=== PATIENT | male | born 1995 | race Caucasian/White ===

== ENCOUNTER 2017-04-08 23:45 | Emergency (ER) | payer SELFPAY ==
[2017-04-08 23:52] VITALS: RESP 16; TEMP 98.6
--- NOTE | 2017-04-09 00:24 | EDPHY ---
H & P Stated Complaint: forehead lac Source: Patient Exam Limitations: No limitations - Personal History Current Tetanus/Diphtheria Vaccine: Unsure Current Tetanus Diphtheria and Acellular Pertussis (TDAP): Unsure - Medical/Surgical History Hx Asthma: No Hx Chronic Respiratory Disease: No Hx Diabetes: No Hx Cardiac Disease: No Hx Renal Disease: No Hx Cirrhosis: No Hx Alcoholism: No Hx HIV/AIDS: No Hx Splenectomy or Spleen Trauma: No Other PMH: denies - Social History Smoking Status: Never smoked HPI/ROS: CHIEF COMPLAINT: Fall, forehead laceration HISTORY OF PRESENT ILLNESS: Patient reports with complaints of mechanical fall. He says he was carrying a friend on his back and tripped and fell. He struck his head on concrete sidewalk. Denies loss of consciousness. Denies headache. He has an abrasion to the top of the forehead as well as a superficial laceration to the forehead. He has no neck pain. No nausea or vomiting. No visual disturbance. No injury elsewhere on his person. He says that he is embarrassed of this and has no complaints of pain just wants is laceration addressed. No other associated complaints or modifying factors. TIME OF INJURY: Less than 1 hour ago TETANUS STATUS: Less than 5 years ago REVIEW OF SYSTEMS: Ten systems reviewed and are negative unless otherwise noted in the HPI EXAMINATION General Appearance: Alert, no distress Head: normocephalic. Superficial abrasion to the hairline in the anterior scalp measuring 2 cm. Superficial laceration to the forehead centrally, measuring 1.5 cm. No depression or hematomas elsewhere. No Nichole sign. No raccoon eyes. Cardiovascular: Pulses normal throughout. Symmetric radial pulses 2+. Symmetric DP pulses 2+. Brisk cap refill Neurological: GCS 15. Cranial nerves 2-12 grossly intact. A&O, sensory symmetric, strength symmetric in all 4 limbs. No pronator drift. No dysmetria. No tremor. Skin: Warm and dry, no rash. Abrasion laceration as above. No other injuries elsewhere. Extremities: Nontender, no pedal edema DIFFERENTIAL DIAGNOSES: Including but not limited to hematoma, concussion, intracranial hemorrhage, closed head injury, laceration, abrasion, contusion MDM: 12:20 a.m. Mechanical fall with superficial abrasion to the hairline of the scalp and superficial laceration to the forehead. There is small hematoma only of the frontal region. No outward signs of trauma that would suggest intracranial hemorrhage or fracture. He does not meet CT scan of the head criteria based on Davidson CT head rules. There is no cervical spine tenderness. No injury elsewhere. I have anesthetize the forehead wound and will proceed with irrigation. 12:45 a.m. Laceration has been irrigated and closed with Dermabond adhesive without complication. Excellent approximation of wound borders. He neurovascular intact distally. He is awake and alert, conversing appropriately. He is ambulating without assistance. No vomiting. No visual change. No headache. Discharged home stable condition. ED precautions discussed. He will follow up with his primary care physician back in [place] PROCEDURE: Laceration repair Consent: Verbal Location: Forehead Length of repair: 1.5 cm Complexity: Simple Layer involvement: Single Anesthesia: Local. 1% lidocaine with epinephrine, 5 mL Irrigation: Extensive Debridement: None Procedure description: Following good anesthesia, the wound was copiously irrigated. Wound bed was explored and there is no foreign body noted. There is no exposure of or injury to the [place]. Wound borders were approximated well with good hemostasis. Tolerated well without complication. Suture/Staple material: Dermabond skin adhesive Wound care: Routine as discussed SUTURE STAPLE REMOVAL: None. Skin adhesive applied. ED Precautions: Worsening pain. Erythema, edema, cyanosis, pallor, paresthesia or anesthesia. SUPERVISION: This patient was independently evaluated without direct examination by the attending physician. Case was discussed with attending physician. (Boo Loera ) Constitutional: Initial Vital Signs Temperature (C) 37 C 04/08/17 23:50 Heart Rate 80 04/08/17 23:50 Respiratory Rate 16 04/08/17 23:50 Blood Pressure 120/74 04/08/17 23:50 O2 Sat (%) 96 04/08/17 23:50 O2 Delivery Mode Room Air Medical Decision Making Other Provider: PHYSICIAN DOCUMENTATION: The patient was evaluated and managed by the Physician Electrical Electronics Technician. My co- signature indicates that I have reviewed this chart and I agree with the findings and plan of care as documented. I am the secondary supervising physician. (Ayesha Peralta) Departure - Departure Disposition: Home, Routine, Self-Care Clinical Impression: Abrasion Laceration of forehead without complication Qualifiers: Encounter type: initial encounter Qualified Code(s): S01.81XA - Laceration without foreign body of other part of head, initial encounter Closed head injury Qualifiers: Encounter type: initial encounter Qualified Code(s): S09.90XA - Unspecified injury of head, initial encounter Condition: Good Instructions: Concussion (ED), Head Injury (ED), Skin Adhesive Care (ED) Additional Instructions: 1. Wound care as discussed 2. Follow up with primary care physician 3. Return to the ER for any worsening pain, nausea, vomiting, visual disturbance , neck pain, or signs of infection as discussed. Referrals: NONE *PRIMARY CARE P,. [Primary Care Provider] - As per Instructions Adela Espionsa MD [Doctor of Osteopathy] - As per Instructions
[2017-04-09] MEDS ORDERED: SKIN ADHESIVE (DERMABOND) 1 EACH TP ONE (00:31)
[2017-04-09 00:58] VITALS: BP 122/74; PULSE 79; O2SAT 97
== END 2017-04-09 00:56 | disposition home or self-care (01) ==
PROC: 0HQ1XZZ Repair Face Skin, External Approach (ICD-10-PCS; principal; 2017-04-08)
DX: S01.81XA Laceration without foreign body of other part of head, initial encounter (principal); S09.90XA Unspecified injury of head, initial encounter; W01.10XA Fall on same level from slipping, tripping and stumbling with subsequent striking against unspecified object, initial encounter

== ENCOUNTER 2017-04-09 07:31 | Emergency (ER) | payer OTHER ==
[2017-04-09 07:36] VITALS: RESP 16
[2017-04-09] MEDS ORDERED: ONDANSETRON 4 MG/2 ML VIAL IVP ONE (07:50)
[2017-04-09] MEDS ORDERED: NS 1,000 ML IV ONE (09:08)
[2017-04-09] MEDS ORDERED: ACETAMINOPHEN 500 MG TAB PO ONE (09:09)
--- NOTE | 2017-04-09 09:12 | EDPHY ---
H & P Smoking Status: Never smoked Time Seen by Provider: 04/09/17 08:58 HPI/ROS: CHIEF COMPLAINT: Nausea vomiting lightheaded HISTORY OF PRESENT ILLNESS: This is a 22-year-old male presenting to the emergency department complaining of nausea vomiting and positive loss of consciousness this morning. Patient was discharged chair last night [id number] status post head injury from fall. Patient states him in his friends were out drinking last night celebrating his friends 21st per day he states he drink a little bit too much took a fall and hit his head no loss of consciousness last night. Patient states woke up this morning to get up to the bathroom felt lightheaded very dizzy "passed out, I woke up on the bathroom floor" positive nausea vomiting several times this morning with intermittent headache. Denies any new injuries REVIEW OF SYSTEMS: Constitutional: No fever, no chills. Decreased p.o. intake Eyes: No discharge. No blurred vision ENT: No sore throat. Cardiovascular: No chest pain, no palpitations. Respiratory: No cough, no shortness of breath. Gastrointestinal: No abdominal pain. Nausea vomiting Genitourinary: No hematuria. Musculoskeletal: No back pain. Skin: No rashes. Neurological: Intermittent headache. (Paula Doss) Physical Exam: General Appearance: Alert, no distress. Head,Eyes: Normocephalic. Forehead repaired laceration. Pupils equal and round no pallor or injection. ENT, Mouth: Mucous membranes moist. Respiratory: There are no retractions, lungs are clear to auscultation. Cardiovascular: Regular rate and rhythm. Gastrointestinal: Abdomen is soft and nontender, no masses, bowel sounds normal. Neurological: No focal deficits. Answering questions appropriately Skin: Warm and dry, no rashes. Musculoskeletal: Vertebral cervical spine nontender on palpation full range of motion. Extremities: symmetrical, full range of motion. Psychiatric: Patient is oriented X 3, there is no agitation. Acting appropriately (Paula Doss) Constitutional: Initial Vital Signs Temperature (C) 36.3 C 04/09/17 07:33 Heart Rate 61 04/09/17 07:33 Respiratory Rate 16 04/09/17 07:33 Blood Pressure 118/66 04/09/17 07:33 O2 Sat (%) 96 04/09/17 07:33 O2 Delivery Mode Room Air Allergies/Adverse Reactions: No Known Allergies Allergy (Unverified 04/09/17 07:36) Medical Decision Making - Diagnostics Imaging Results: Imaging Impressions Head CT 04/09/17 09:13 Impression: Soft tissue swelling or hematoma frontal scalp. Otherwise normal CT head without contrast. Results called and discussed with Paula Doss NP at 04/09/2017 10:14. ED Course/Re-evaluation: Discussed ED plan of care: IV fluids, Zofran CBC, BMP, CT head 1000: Patient re-evaluated no nausea vomiting patient reports feeling a lot better. 1014: Spoke with Dr. Harp CT head negative no subdural hematoma noted to subarachnoid hemorrhage 1020: Discussed results with patient. Discharge home---> stable, tolerating p.o. intake no nausea vomiting. Discussed discharge instructions with patient, also given him pamphlets on closed head injury and concussion precautions ( Paula Doss) I did not see this patient while he was in the emergency department. However his care was discussed with the nurse practitioner while the patient was in the department. I agree with treatment plan and management (George White) Differential Diagnosis: Other differential diagnosis considered but not limited to subarachnoid hemorrhage, syncope with seizure, AMS due to alcohol intoxication and concussion (Paula Doss) - Data Points Laboratory Results: Laboratory Results 04/09/17 07:55 04/09/17 07:55 04/09/17 04/09/17 07:55 07:55 WBC 8.97 10^3/uL 10^3/uL (3.80-9.50) RBC 5.13 10^6/uL 10^6/uL (4.40-6.38) Hgb 16.2 g/dL g/dL (13.7-17.5) Hct 47.6 % % (40.0-51.0) MCV 92.8 fL fL (81.5-99.8) MCH 31.6 pg pg (27.9-34.1) MCHC 34.0 g/dL g/dL (32.4-36.7) RDW 12.2 % % (11.5-15.2) Plt Count 247 10^3/uL 10^3/uL (150-400) MPV 11.1 fL fL (8.7-11.7) Neut % (Auto) 49.3 % % (39.3-74.2) Lymph % (Auto) 36.5 % % (15.0-45.0) [place] % (Auto) 10.0 % % (4.5-13.0) Eos % (Auto) 3.0 % % (0.6-7.6) Baso % (Auto) 0.9 % % (0.3-1.7) Nucleat RBC Rel Count 0.0 % % (0.0-0.2) Absolute Neuts (auto) 4.42 10^3/uL 10^3/uL (1.70-6.50) Absolute Lymphs (auto) 3.27 10^3/uL H 10^3/uL (1.00-3.00) Absolute Monos (auto) 0.90 10^3/uL H 10^3/uL (0.30-0.80) Absolute Eos (auto) 0.27 10^3/uL 10^3/uL (0.03-0.40) Absolute Basos (auto) 0.08 10^3/uL 10^3/uL (0.02-0.10) Absolute Nucleated RBC 0.00 10^3/uL 10^3/uL (0-0.01) Immature Gran % 0.3 % % (0.0-1.1) Immature Gran # 0.03 10^3/uL 10^3/uL (0.00-0.10) Sodium 145 mEq/L H mEq/L (134-144) Potassium 4.0 mEq/L mEq/L (3.5-5.2) Chloride 109 mEq/L mEq/L (97-110) Carbon Dioxide 21 mEq/l L mEq/l (22-31) Anion Gap 15 mEq/L mEq/L (8-16) BUN 13 mg/dL mg/dL (7-23) Creatinine 0.8 mg/dL mg/dL (0.7-1.3) Estimated GFR > 60 Glucose 120 mg/dL H mg/dL (70-100) Calcium 9.5 mg/dL mg/dL (8.5-10.4) Medications Given: Discontinued Medications Acetaminophen (Tylenol) 1,000 mg PO EDNOW ONE Stop: 04/09/17 09:10 Last Admin: 04/09/17 09:14 Dose: 1,000 mg Sodium Chloride (Ns) 1,000 mls @ 0 mls/hr IV ONCE ONE PRN Reason: Wide Open Stop: 04/09/17 09:09 Last Admin: 04/09/17 09:12 Dose: 1,000 mls Ondansetron HCl (Zofran) 4 mg IVP EDNOW ONE Stop: 04/09/17 07:51 Last Admin: 04/09/17 07:56 Dose: 4 mg Ondansetron HCl (Zofran Odt 4 Mg Prepack#2) 1 btl TAKEHOME EDNOW ONE Stop: 04/09/17 10:20 Last Admin: 04/09/17 10:28 Dose: 1 btl Departure - Departure Disposition: Home, Routine, Self-Care Clinical Impression: Concussion Qualifiers: Encounter type: initial encounter Loss of consciousness presence/duration: with LOC of unspecified duration Qualified Code(s): S06.0X9A - Concussion with loss of consciousness of unspecified duration, initial encounter Laceration of forehead without complication Qualifiers: Encounter type: subsequent encounter Qualified Code(s): S01.81XD - Laceration without foreign body of other part of head, subsequent encounter Condition: Good Instructions: Concussion (ED), Post Concussion Syndrome (ED) Additional Instructions: 1. no strenuous activity, heavy exercise for the next 3-5 days such as heavy running, weightlifting 2. You can take Tylenol and ibuprofen as needed for any headache 3. Increase fluid intake, rest 4. Follow up with your primary care provider as needed 5. Monitor for any signs of infection to your head wound such as: Increased redness, increased swelling, pus. I also recommend no [place] water, river water, or chlorinated pool water as these can increase chances for wound infection 6. Ice pack 15 minutes several times a day to decrease any swelling to forehead 7. Would recommend no alcohol 8. Also given you a copy of CT on CD take with you to school. Also pamphlet on closed head injuries and concussion precautions Referrals: NONE *PRIMARY CARE P,. [Primary Care Provider] - As per Instructions [facility],. [Clinic] - As per Instructions Stand Alone Forms: School Excuse
[2017-04-09 09:25] LABS: % IMMATURE GRANULYOCYTES 0.3 % (0.0-1.1); ABSOLUTE IMMATURE GRANULOCYTES 0.03 10^3/uL (0.00-0.10); ADD DIFF? NO; ADD MORPH? NO; ADD SCAN? NO; ATYPICAL LYMPHOCYTE FLAG 10 (0-99); FRAGMENT RBC FLAG 0 (0-99); HEMATOCRIT 47.6 % (40.0-51.0); HEMOGLOBIN 16.2 g/dL (13.7-17.5); LEFT SHIFT FLG 0 (0-99); LIPEMIA HEMOLYSIS FLAG 90 (0-99); MEAN CELL HEMOGLOBIN 31.6 pg (27.9-34.1); MEAN CELL VOLUME 92.8 fL (81.5-99.8); MEAN PLATELET VOLUME 11.1 fL (8.7-11.7); PLATELET CLUMPS FLAG 0 (0-99); PLATELET COUNT 247 10^3/uL (150-400); RED BLOOD CELL COUNT 5.13 10^6/uL (4.40-6.38); RED CELL DISTRIBUTION WIDTH 12.2 % (11.5-15.2)
[2017-04-09 09:26] LABS: ANION GAP 15 mEq/L (8-16); CALCIUM 9.5 mg/dL (8.5-10.4); CARBON DIOXIDE 21 mEq/l (22-31); CHLORIDE 109 mEq/L (97-110); CREATININE 0.8 mg/dL (0.7-1.3); GLOMERULAR FILTRATION RATE > 60; GLUCOSE 120 mg/dL (70-100); SODIUM 145 mEq/L (134-144)
[2017-04-09] MEDS ORDERED: ONDANSETRON 4MG PREPACK#2 BTL TAKEHOME ONE (10:19)
[2017-04-09 10:40] VITALS: BP 130/75; PULSE 72; TEMP 98.6; O2SAT 97
== END 2017-04-09 10:48 | disposition home or self-care (01) ==
DX: S06.0X9D Concussion with loss of consciousness of unspecified duration, subsequent encounter (principal); S01.81XD Laceration without foreign body of other part of head, subsequent encounter; W19.XXXD Unspecified fall, subsequent encounter
CPT/HCPCS: 96374; J2405